=== PATIENT | male | born 1990 | race Caucasian/White ===

== ENCOUNTER 2021-05-28 15:15 | Emergency (ER) | payer OTHER, SELFPAY ==
[2021-05-28 15:25] VITALS: BP 162/112; PULSE 96; RESP 20; TEMP 36.7; O2SAT 100; BMI 40.1
--- NOTE | 2021-05-28 15:36 | DI.RAD.S_ITS ---
PROCEDURE: XR HAND LT MIN 3V INDICATIONS: deep laceration to base of 1st finger, tendon visable. TECHNIQUE: Three views of the hand(s) acquired. COMPARISON: None. FINDINGS: Bones: No visible fractures or dislocations. Carpal bones are normally aligned. No suspicious bony lesions. Soft tissues: No suspicious soft tissue calcifications. No radiodense foreign bodies. IMPRESSION: No visible fractures or foreign bodies. Dictated by: Xenia Schwarz M.D. on 05/28/2021 at 16:23 Approved by: Xenia Schwarz M.D. on 05/28/2021 at 16:24
[2021-05-28] MEDS: TET,DIPH,PERTUSS(ACELL),VAC/PF 0.5 ML SYRINGE IM (15:58)
--- NOTE | 2021-05-28 16:12 | ED_ITS ---
HPI - Wound/Laceration <Bertram Clifton PA-C - Last Filed: 05/28/21 17:40> General Chief Complaint: Wound/Laceration Stated Complaint: CUT RIGHT HAND Time Seen by Provider: 05/28/21 15:51 Source: patient Mode of arrival: Ambulatory Limitations: no limitations History of Present Illness HPI narrative: 31-year-old male with no reported past medical history presents to the ED status post a right thumb injury sustained just prior to arrival. Patient was at work, tried to catch a falling metallic sign, causing a laceration at the base of his right thumb. Patient endorses some numbness in his thumb, but denies tingling, weakness. Patient denies fever, chills. Patient not on blood thinners. Patient's last tetanus unknown. Denies any other injuries, head strike, LOC. Related Data Home Medications Medication Instructions Recorded Confirmed No Known Home Medications 05/28/21 05/28/21 Allergies Allergy/AdvReac Type Severity Reaction Status Date / Time No Known Drug Allergies Allergy Verified 05/28/21 15:32 Review of Systems <Bertram Clifton PA-C - Last Filed: 05/28/21 17:40> Constitutional Constitutional: Denies chills, Denies fatigue, Denies fever(s), Denies frequent falls, Denies lethargy and Denies weakness Eyes Eyes: Denies change in vision, Denies eye discharge, Denies irritation and Denies loss of vision ENT Ears, Nose, Mouth, and Throat: Denies change in voice, Denies dizziness, Denies neck pain, Denies sore throat and Denies throat swelling Cardiovascular Cardiovascular: Denies chest pain, Denies irregular heart rhythm, Denies lightheadedness, Denies palpitations, Denies dyspnea, Denies dyspnea on exertion and Denies orthopnea Respiratory Respiratory: Denies cough, Denies dyspnea, Denies dyspnea on exertion and Denies wheezing Gastrointestinal Gastrointestinal: Denies abdominal pain, Denies change in bowel habits, Denies diarrhea, Denies nausea and Denies vomiting Musculoskeletal Musculoskeletal: Denies neck pain and Denies numbness Integumentary/Breasts Skin/Breast: Denies pruritus, Denies erythema and Denies rash Comments: Laceration to right hand Neurologic Neurologic: Denies behavioral changes, Denies confusion, Denies dizziness, Denies frequent falls, Denies loss of vision, Denies numbness and Denies weakness Psychiatric Psychiatric: Denies anxiety, Denies behavioral changes, Denies confusion, Denies depression, Denies homicidal ideation and Denies suicidal ideation Endocrine Endocrine: Denies fatigue, Denies flushing and Denies palpitations Hematologic/Lymphatic Hematologic/Lymphatic: Denies easy bruising Allergic/Immunologic Allergic/Immunologic: Denies urticaria, Denies throat swelling and Denies wheezing Patient History <Bertram Clifton PA-C - Last Filed: 05/28/21 17:40> Social History Smoking Status: Former smoker Smoking Status: Former smoker alcohol intake frequency: a few times a week Substance Use Type: does not use Exam <Bertram Clifton PA-C - Last Filed: 05/28/21 17:40> Initial Vital Signs Initial Vital Signs: Vital Signs Temperature 98.0 F 05/28/21 15:25 Pulse Rate 96 H 05/28/21 15:25 Respiratory Rate 20 05/28/21 15:25 Blood Pressure 162/112 H 05/28/21 15:25 Pulse Oximetry 100 05/28/21 15:25 Const General: cooperative HENMT Head: normocephalic and atraumatic Ears: external ears normal and TM's normal bilaterally Nose: external nose normal and No nasal discharge Face and sinus: sinuses nontender, face symmetric, no sinus tenderness and No dry mucous membranes Mouth: oral mucosae normal and moist mucous membranes Teeth and gingiva: dentition normal Throat: tonsils normal and uvula midline Eyes General: appearance normal, both eyes and all related structures Eyelids: eyelids normal Conjunctivae: conjunctivae normal Sclera: sclerae normal Pupils: PERRL EOM: EOM intact bilaterally Neck Neck: normal visual inspection, trachea midline, No lymphadenopathy, No midline deformity and No JVD Lymphatic: No lymphedema Chest Chest: normal inspection of the chest Resp Effort & Inspection: normal respiratory effort, able to speak in complete sentences, no respiratory distress and no use of accessory muscles Auscultation: clear to auscultation bilaterally, no rales, no rhonchi and no wheezes Cardio Rate: regular rate Rhythm: regular rhythm Heart Sounds: no click, no gallops, no murmurs and no rubs Pulses: normal peripheral pulses GI Inspection: non-distended Palpation: soft, no hepatosplenomegaly, No guarding, No pulsatile mass and No tender Auscultation: normal bowel sounds Back/Spine/Pelvis Back: No CVA tenderness Cervical Spine: cervical ROM normal and No pain with cervical ROM Thoracic/Lumbar Spine: thoracic and lumbar spine normal to inspection Skin General: No jaundice and No petechiae Other: 4 cm linear transverse laceration to the base of right thumb on the palmar surface. Bleeding controlled with pressure. No visible tendons. Neurovascularly intact. Full range of motion. Neuro General: patient alert, patient oriented x3, gait normal and no focal motor deficits Speech: speech normal Extrem General: full ROM, no clubbing, cyanosis or edema, no pedal edema and no calf tenderness Psych Appearance: well kempt Mental Status: mental status grossly normal Attitude: cooperative Thought Content: normal and suicidality Judgment: judgment good <Fabián Rodriguez DO - Last Filed: 05/28/21 17:44> Initial Vital Signs Initial Vital Signs: Vital Signs Temperature 98.0 F 05/28/21 15:25 Pulse Rate 96 H 05/28/21 15:25 Respiratory Rate 20 05/28/21 15:25 Blood Pressure 162/112 H 05/28/21 15:25 Pulse Oximetry 100 05/28/21 15:25 Procedures <IVON Pearce Last Filed: 05/28/21 17:40> Laceration Repair Laceration 1: Site: hand Side (If applicable): right Size (cm): 4 Description: linear Depth: simple, single layer Local Anesthetic: lidocaine 1% Amount of anesthesia used (mL): 6 Pre-repair: wound explored, irrigated extensively and deep structures intact Skin layer closed with: nylon Size (cm): 4-0 Number of sutures: 9 Technique: simple, interrupted Course <IVON Pearce Last Filed: 05/28/21 17:40> Orders Ordered: ED Orders 05/28/21 15:36 XR hand LT min 3V Stat Discontinued Medications Bacitracin (Bacitracin Oint 0.9 Gm Pckt) 1 applic TOP NOW ONE Stop: 05/28/21 17:31 Diphtheria/Tetanus/Acell Pertussis (Tet,Diph,Pertuss(Acell),Vac/Pf 0.5 Ml Syringe) 0.5 ml IM .ONCE ONE Stop: 05/28/21 15:33 Last Admin: 05/28/21 15:58 Dose: 0.5 ml Documented by: KBROWNE Lidocaine HCl (Lidocaine 1% 20 Ml) 10 ml INJ NOW ONE Stop: 05/28/21 16:04 Vital Signs Vital signs: Vital Signs - 8 hr 05/28/21 15:25 Temperature 98.0 F Pulse Rate 96 H Respiratory Rate 20 Blood Pressure 162/112 H Pulse Oximetry 100 <Fabián Rodriguez DO - Last Filed: 05/28/21 17:44> Orders Ordered: ED Orders 05/28/21 15:36 XR hand LT min 3V Stat Discontinued Medications Bacitracin (Bacitracin Oint 0.9 Gm Pckt) 1 applic TOP NOW ONE Stop: 05/28/21 17:31 Diphtheria/Tetanus/Acell Pertussis (Tet,Diph,Pertuss(Acell),Vac/Pf 0.5 Ml Syringe) 0.5 ml IM .ONCE ONE Stop: 05/28/21 15:33 Last Admin: 05/28/21 15:58 Dose: 0.5 ml Documented by: KBROWNE Lidocaine HCl (Lidocaine 1% 20 Ml) 10 ml INJ NOW ONE Stop: 05/28/21 16:04 Vital Signs Vital signs: Vital Signs - 8 hr 05/28/21 15:25 Temperature 98.0 F Pulse Rate 96 H Respiratory Rate 20 Blood Pressure 162/112 H Pulse Oximetry 100 MDM - Wound/Laceration <Bertram Clifton PA-C - Last Filed: 05/28/21 17:40> Medical Records Attestation: I reviewed the patient's medical records. Imaging Data Extremity x-ray #1: Radiologist's Impression: PROCEDURE:? XR HAND LT MIN 3V ? INDICATIONS:? deep laceration to base of 1st finger, tendon visable. ? TECHNIQUE:? Three views of the hand(s) acquired.? ? COMPARISON:? None. ? FINDINGS:? ? Bones:? No visible fractures or dislocations.? Carpal bones are normally aligned.? No suspicious bony lesions.? ? Soft tissues:? No suspicious soft tissue calcifications.? No radiodense foreign bodies. ? ? IMPRESSION:? No visible fractures or foreign bodies. ? ? Dictated by: Xenia Schwarz M.D. on 05/28/2021 at 16:23 ? ? Approved by: Xenia Schwarz M.D. on 05/28/2021 at 16:24 ? MDM Narrative Medical decision making narrative: 31-year-old male with no reported past medical history presents to the ED status post a right thumb injury sustained just prior to arrival. Patient neurovascularly intact on physical exam, with full range of motion. Will repair the laceration with sutures. Will obtain x- ray of the hand to rule out foreign object. Will discharge home with ED return precautions. Discharge Plan Departure Patient Disposition: Home Clinical Impression: Laceration Instructions: DI for Laceration Repair Activity Restrictions/Additional Instructions: You were evaluated in the ED today for a laceration to your right hand. Your laceration was sutured. You will need your sutures removed in 10-14 days for which she can come to the ED, or go to your PCP or an urgent care center. It is important to watch out for signs of infection including redness, swelling, warmth, discharge, fever, chills. Please return to the ED if you notice any signs of infection. Keep the wound dry for the next 24 hours, after which you can keep it clean with soap and water. Make sure to dry well and reapply bandage. Prescriptions: No Action No Known Home Medications RF: 0 <Fabián Rodriguez, DO - Last Filed: 05/28/21 17:44> Cosign ED Attending Coslucioature Attestation: Dr Rodriguez Co-Sign Statement: I was available for consultation during this patient's emergency department visit. This chart is signed by myself for administrative purposes only. I did not have direct contact with this patient during this visit. They were seen independently by the APC.
== END 2021-05-28 17:49 | disposition home or self-care (01) ==
PROVIDERS: Emergency Provider Student in an Organized Health Care Education/Training Program
DX: S61.411A Laceration without foreign body of right hand, initial encounter (principal); W26.8XXA Contact with other sharp object(s), not elsewhere classified, initial encounter; Y99.0 Civilian activity done for income or pay; Z23 Encounter for immunization
CPT/HCPCS: 12042; 73130; 90471; 99283; 99284; 90715